=== PATIENT | male | born 1990 | race Caucasian/White ===

== ENCOUNTER 2016-06-20 07:18 | Emergency (ER) ==
[2016-06-20] MEDS ORDERED: ZOFRAN ODT PO ONE (07:50)
--- NOTE | 2016-06-20 08:56 | Diag Imaging Result Document ---
PROCEDURE NAME: CHEST-2 VIEWS - 06/20/2016 TWO VIEWS OF THE CHEST: FINDINGS: The appearance of the chest has not changed significantly since 01/05/2016. IMPRESSION: Stable chest.
--- NOTE | 2016-06-20 09:03 | Diag Imaging Result Document ---
PROCEDURE NAME: ANKLE COMPLETE RIGHT - 06/20/2016 RIGHT ANKLE, THREE VIEWS: FINDINGS: No fracture. No dislocation. IMPRESSION: No acute bony injury.
--- NOTE | 2016-06-20 09:30 | PROVIDER DOCUMENTATION ---
HPI-General Adult - General Source: patient - History of Present Illness -Gen Adult Nature of Presenting Problems: Patient is a 25 y/o M that presents to the ER with 4 to 5 days of cough, fever/ chills, body aches, and n/v. patient reports family with similar symptoms. Patient also c/o right ankle pain after twisting it playing basketball two weeks ago. Location of Pain/Injury: reports: generalized Pain Radiation: reports: no radiation Quality of Pain: reports: aching Severity: reports: moderate Onset/Duration: reports: gradual, 4 days ago, 5 days ago Timing: reports: still present, getting worse Context/Activities at Onset: reports: none Modifying Factors: improves with: nothing Associated Symptoms: reports: cough, EENT symptoms, fever/chills, joint pain ( from two weeks ago), muscle aches, nausea, vomiting. denies: chest pain, constipation, diarrhea, dizziness, genitourinary problems, loss of appetite, shortness of breath Similar Symptoms Previously?: No Recently seen or treated by another doctor?: No <Vern Tijerina - Last Filed: 06/20/16 09:33> <Reyes Bassett - Last Filed: 06/20/16 10:06> - General Chief Complaint: Flu Symptoms Stated Complaint: flu like sx Time Seen by Provider: 06/20/16 07:20 Allergies/Adverse Reactions: Patient Allergies Allergy/AdvReac Type Severity Reaction Status Date / Time venom-honey bee Allergy Intermediate HIVES Verified 06/20/16 07:33 [bee venom (honey bee)] Home Medications: Home Medication List Medication Instructions Recorded Confirmed Last Taken Type Azithromycin [Zithromax Z-Jaxson] 250 mg PO DIRECTED #1 pkg 06/20/16 Unknown Rx Ondansetron [Zofran Odt] 4 mg PO TID PRN #10 tab.rapdis 06/20/16 Unknown Rx Review of Systems - Adult - REVIEW OF SYSTEMS - ADULT Constitutional: reports: chills, fever. denies: fatique Eyes: reports: no symptoms reported Ears, Nose, Mouth & Throat: reports: other (facial pain). denies: ear discharge , ear pain, sinus problem, throat pain, throat swelling Cardiovascular: denies: chest pain, palpitations Respiratory: reports: cough. denies: shortness of breath, wheezing Gastrointestinal: reports: nausea, vomiting. denies: abdominal pain, diarrhea Genitourinary: reports: no symptoms reported Musculoskeletal: reports: muscle weakness Integumentary: reports: no symptoms reported Neurological: denies: dizziness/vertigo, headache/migraines, seizure, syncope Psychiatric: reports: no symptoms reported Endocrine: reports: no symptoms reported Hematologic/Lymphatic: reports: no symptoms reported Allergic/Immunologic: reports: no symptoms reported All Other Systems: Reviewed and Negative <Vern Tijerina - Last Filed: 06/20/16 09:33> Past History - Adult - PAST MEDICAL HISTORY-ADULT Review of Records: reports: Old Records Reviewed, Nursing Assessment Review, Medications Reviewed Endocrine/Immune: 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) - PRIOR SURGERIES/PROCEDURES Surgical/Procedure History: reports: orthopedic (extremity) - IMMUNIZATION STATUS Childhood Immunizations: See Nurse Assessment Flu Vaccine: See Nurse Assessment - FAMILY HISTORY Family History: reviewed, not pertinent - SOCIAL HISTORY Smoking: cigarettes, less than 1 pack/day Substance Use: marijuana Alcohol Use Frequency: occasionally Living Situation: family <Vern Tijerina - Last Filed: 06/20/16 09:33> Physical Exam-General - PHYSICAL EXAM-ADULT Initial Vital Signs Reviewed: Yes - CONSTITUTIONAL General Appearance: alert, no apparent distress - EYES Eyes: PERRL/EOMI, pink conjunctivae - HEAD, EARS, NOSE, MOUTH & THROAT HENMT: normocephalic/atraumatic, moist mucous membranes, normal ENT inspection - NECK Neck: non-tender, full range of motion, normal inspection - RESPIRATORY Respiratory: lungs clear, normal breath sounds, no respiratory distress, no accessory muscle use - CARDIOVASCULAR Cardiovascular: regular rate, rhythm, no edema, no murmur - GASTROINTESTINAL (ABDOMEN) Abdominal Exam: normal bowel sounds, non tender, soft, no organomegaly, no pulsatile mass - MUSCULOSKELETAL Back Exam: normal inspection, no vertebral tenderness Extremity: no pedal edema, no calf tenderness, normal capillary refill, pelvis stable, swelling (right lateral ankle) - SKIN Integumentary: normal color, warm/dry - NEUROLOGIC Neurologic: grossly normal, no motor/sensory deficits - PSYCHIATRIC Psych/Mental Status: normal mood/affect, normal thought content, normal thought process, oriented x 3 <Vern Tijerina - Last Filed: 06/20/16 09:33> Progress - PLAN OF CARE/RESULTS Progress/Plan/Lab Results: plan of care-swabs,meds, xrays <Vern Tijerina - Last Filed: 06/20/16 09:33> - PLAN OF CARE/RESULTS Progress/Plan/Lab Results: Orders Category Date Time Status ANKLE COMPLETE RIGHT [RAD] Stat Exams 06/20/16 07:50 Completed CHEST-2 VIEWS [RAD] Stat Exams 06/20/16 07:50 Draft DIRECT STREP Stat Lab 06/20/16 07:25 Completed INFLUENZA SCREEN A/B Stat Lab 06/20/16 07:25 Completed UA NIMS W/REFLEX CULT [URINALYSIS] Stat Lab 06/20/16 08:52 Completed Ondansetron Odt [Zofran Odt] Med 06/20/16 07:50 Discontinued 8 mg PO NOW ONE Orders Category Date Time Status ANKLE COMPLETE RIGHT [RAD] Stat Exams 06/20/16 07:50 Completed CHEST-2 VIEWS [RAD] Stat Exams 06/20/16 07:50 Draft DIRECT STREP Stat Lab 06/20/16 07:25 Completed INFLUENZA SCREEN A/B Stat Lab 06/20/16 07:25 Completed UA NIMS W/REFLEX CULT [URINALYSIS] Stat Lab 06/20/16 08:52 Completed Ondansetron Odt [Zofran Odt] Med 06/20/16 07:50 Discontinued 8 mg PO NOW ONE Vital Signs Temp Pulse Resp BP Pulse Ox 06/20/16 07:26 97.3 F L 80 20 145/90 99 venom-honey bee [bee venom (honey bee)] Allergy (Intermediate, Verified 07:33) HIVES No Home Medications 05/10/16 I&O 06/19/16 06/20/16 06/21/16 06:59 06:59 06:59 Output Total 120 Balance -120 Laboratory 06/20/16 08:52 Urine Source CLEAN CATCH Urine Color YELLOW Urine Turbidity CLEAR Urine pH 6.5 Ur Specific [place] 1.016 Urine Protein NEGATIVE Ur Glucose (Stick) NEGATIVE Ur Ketones (Stick) NEGATIVE Urine Blood NEGATIVE Urine Nitrite NEGATIVE Urine Bilirubin NEGATIVE Urobilinogen Dipstick NORMAL Urine Leukocytes NEGATIVE Urine WBC (Auto) <10 Urine RBC (Auto) <10 U Epithel Cells (Auto) <10 Urine Bacteria (Auto) NEGATIVE <Reyes Bassett X - Last Filed: 06/20/16 10:06> Departure <Vern Tijerina - Last Filed: 06/20/16 09:33> - Departure Time of Disposition Order: 10:03 Certified Medical Emergency: Emergent <Reyes Bassett - Last Filed: 06/20/16 10:06> - Departure DIAGNOSIS: Flu-like symptoms, Gastroenteritis Disposition: HOME 01 Condition: Stable Prescriptions: Azithromycin [Zithromax Z-Jaxson] 250 mg PO DIRECTED #1 pkg Ondansetron [Zofran Odt] 4 mg PO TID PRN #10 tab.rapdis PRN Reason: Nausea And Vomiting Attestation - Scribe Verification/Attestation Scribe:: Vern Tijerina Acting as Scribe for:: Reyes Bassett Scribe documention review:: This chart was documented by a scribe and accurately reflects the service the provider performed and the decisions made by the provider. <Vern Tijerina - Last Filed: 06/20/16 09:33> Physician Attestation - Physician Attestation I, the provider, attest to the following statement:: Reyes Bassett Physician documentation Attestation:: This documentation recorded by the scribe accurately reflects the service I personally performed and the decisions made by me. <Vern Tijerina - Last Filed: 06/20/16 09:33>
[2016-06-20 09:50] LABS: URINE CULTURE NEEDED? NO; URINE MICRO REVIEW NEEDED? NO; URINE SOURCE CLEAN CATCH
[2016-06-20 09:57] LABS: BILIRUBIN URINE NEGATIVE (NEGATIVE); BLOOD URINE NEGATIVE (NEGATIVE); COLOR YELLOW; GLUCOSE URINE NEGATIVE (NEGATIVE); LEUKOCYTES URINE NEGATIVE (NEGATIVE); NITRITE URINE NEGATIVE (NEGATIVE); PH URINE 6.5; PROTEIN URINE NEGATIVE (NEGATIVE); SP GRAVITY URINE 1.016; TURBIDITY URINE CLEAR (CLEAR); UR EPITHELIAL CELLS <10 /HPF (<10); URINE BACTERIA NEGATIVE /HPF; URINE RBC <10 /HPF (<10); URINE WBC <10 /HPF (<10); UROBILINOGEN URINE NORMAL (NORMAL)
[2016-06-20 10:38] VITALS: BP 137/84
== END 2016-06-20 10:38 | disposition home or self-care (01) ==
LOC: ED 07:18
DX: J11.1 Influenza due to unidentified influenza virus with other respiratory manifestations (principal); K52.9 Noninfective gastroenteritis and colitis, unspecified; R05 Cough; R50.9 Fever, unspecified; R51 Headache; M62.81 Muscle weakness (generalized); M25.471 Effusion, right ankle; R11.2 Nausea with vomiting, unspecified; M62.82 Rhabdomyolysis; F17.210 Nicotine dependence, cigarettes, uncomplicated
CPT/HCPCS: 71020; 81001; 87081; 87430; 87804; S0181